=== PATIENT | male | born 1955 | race Caucasian/White ===

== ENCOUNTER 2021-05-31 12:50 | Inpatient (IN) | payer MEDICAID ==
[~2021-05-31] VITALS: Ht 177.8 cm; Wt 90.7 kg
[2021-05-31 12:52] VITALS: BP 156/100
--- NOTE | 2021-05-31 13:03 | NUR ---
PT BIBA TAKEN TO ER BED 3.
--- NOTE | 2021-05-31 13:38 | NUR ---
PT RESTING IN BED, HOB ELEVATED FOR COMFORT, VSS, WILL CONTINUE TO MONITOR.
--- NOTE | 2021-05-31 14:14 | NUR ---
PT TAKEN TO ER BED 3 VIA [facility].
--- NOTE | 2021-05-31 17:00 | NUR ---
PT SLEEPING, VISIBLE EQUAL RISE AND FALL OF CHEST, VSS, WILL CONTINUE TO MONITOR.
[2021-05-31 17:06] LABS: BASOPHILS # (AUTO) 0.1 K/uL (0.00-0.22); EOSINOPHILS # (AUTO) 0.1 K/uL (0-0.4); EOSINOPHILS % (AUTO) 0.9 % (0.0-4.0); HEMATOCRIT 35.6 % (36-52); HEMOGLOBIN 11.7 g/dL (12.0-18.0); LYMPHOCYTES # (AUTO) 1.7 K/uL (2.0-11.5); LYMPHOCYTES % (AUTO) 20.6 % (20.5-51.1); MEAN CORPUSCULAR HEMOGLOBIN 28 pg (27-31); MEAN CORPUSCULAR HGB CONC 33 g/dL (33-37); MEAN CORPUSCULAR VOLUME 86.2 fL (80-94); MONOCYTES # (AUTO) 0.5 K/uL (0.8-1.0); MONOCYTES % (AUTO) 5.5 % (1.7-9.3); NEUTROPHILS # (AUTO) 6.1 K/uL (1.8-7.7); PLATELET COUNT (AUTO) 349 K/uL (140-450); RED BLOOD CELL COUNT(AUTO) 4.13 MIL/uL (4.20-6.10); RED CELL DISTRIBUTION WIDTH 16.7 % (11.6-13.7); WHITE BLOOD COUNT (AUTO) 8.5 K/uL (4.8-10.8)
[2021-05-31] MEDS ORDERED: ASPIRIN 325 MG TAB PO ONE (18:00)
[2021-05-31 18:06] LABS: ALBUMIN 1.8 g/dL (3.4-5.0); ANION GAP 13.3 (8-16); CARBON DIOXIDE 24.4 mmol/L (21-32); CREATININE 1.1 mg/dL (0.6-1.3); POTASSIUM 4.7 mmol/L (3.5-5.1); TOTAL BILIRUBIN 0.3 mg/dL (0.0-1.0)
[2021-05-31] MEDS ORDERED: FUROSEMIDE 40 MG/4 ML VIAL IVP ONE (18:25)
[2021-05-31] MEDS ORDERED: cefTRIAXone 1,000 MG VIAL ONE (18:40)
--- NOTE | 2021-05-31 18:49 | NUR ---
DR. CARRERO AT PT BEDSIDE FOR RE-EVALUATION.
[2021-05-31 19:13] LABS: PROTHROMBIN TIME 10.9 secs (10.8-13.4)
--- NOTE | 2021-05-31 19:32 | NUR ---
GAVE REPORT TO DILIA OLIVER, AND LACY BRISCOE. TRANSFER OF CARE AT THIS TIME.
--- NOTE | 2021-05-31 21:30 | NUR ---
AFTER TALKING TO PT ABOUT SIGNING THE AMA PT DECIDED HE DOES WANT TO GET HELP. PT STATES HE WAS AT [place] LAST MONTH AND HE GOT HIS ASITES DRAINED AND THEY D/C HIM. HE SAID AT THIS POINT NO ONE IS HELPING HIM AND HE KEEPS GETTING SICK AND IS TIRED OF THIS LIFE. PT AGREED TO STAY AND ALLOWED ME TO INSERT IV.
--- NOTE | 2021-05-31 21:40 | NUR ---
called dr. whitley about pt desire to stay anf to request new admit orders. to input admit orders
[2021-05-31] MEDS ORDERED: DOCUSATE SODIUM 100 MG GELCAP PO PRN (21:50)
[2021-05-31] MEDS ORDERED: POTASSIUM CHLORIDE 10 MEQ TABER PO PRN (21:50)
[2021-05-31] MEDS ORDERED: SODIUM PHOS / POTASSIUM PHOS 1 PKT PDR PO PRN (21:50)
[2021-05-31] MEDS ORDERED: ZOLPIDEM 5 MG TAB PO PRN (21:50)
[2021-05-31] MEDS ORDERED: ONDANSETRON 4 MG/2 ML VIAL IVP PRN (21:50)
[2021-05-31] MEDS ORDERED: MAG SULF 2000 MG/WATER PREMIX 50 ML IV PRN (21:50)
[2021-05-31] MEDS ORDERED: ACETAMINOPHEN 325 MG TAB PO PRN (21:50)
[2021-05-31 22:46] LABS: PHOSPHORUS 4.3 mg/dL (2.5-4.9)
[2021-05-31] MEDS: NACL 0.9% 1,000 ML IV SCH (22:57)
--- NOTE | 2021-05-31 23:22 | NUR ---
pt states that he is hungry. he hasnt eaten in 2 days. gave pt sandwhich , crackers and soda.
--- NOTE | 2021-06-01 01:15 | NUR ---
pt become agitated. pt states he has pain on his foot. pt states that he burned his feet in the summer which resulted in blisters
[2021-06-01] MEDS: MORPHINE SULFATE 2 MG/ML SYR IVP PRN (01:45)
--- NOTE | 2021-06-01 03:54 | NUR ---
pt agitated. asking what time his procedure is. continously asing for help, time , becomeless restless and taking off gown and leads
[2021-06-01] MEDS: LORazepam 2 MG/ML VIAL IM/IVP PRN (04:02)
--- NOTE | 2021-06-01 04:05 | NUR ---
pt stated pain 10/10 morphine did not help.
[2021-06-01] MEDS: HYDROcodone/APAP 5/325 MG 1 TAB TAB PO PRN (04:07)
--- NOTE | 2021-06-01 06:54 | NUR ---
PATIENT HAS BEEN SCREENED AND CATEGORIZED MODERATE NUTRITION RISK. PATIENT WILL BE SEEN WITHIN 3-5 DAYS OF ADMISSION. 06/04/21-06/06/21 BUCK WAGNER MS, RDN
[2021-06-01 07:04] LABS: BASOPHILS # (AUTO) 0.1 K/uL (0.00-0.22); EOSINOPHILS # (AUTO) 0.1 K/uL (0-0.4); EOSINOPHILS % (AUTO) 1.3 % (0.0-4.0); HEMATOCRIT 34.4 % (36-52); HEMOGLOBIN 11.5 g/dL (12.0-18.0); LYMPHOCYTES # (AUTO) 1.9 K/uL (2.0-11.5); LYMPHOCYTES % (AUTO) 19.8 % (20.5-51.1); MEAN CORPUSCULAR HEMOGLOBIN 29 pg (27-31); MEAN CORPUSCULAR HGB CONC 33 g/dL (33-37); MEAN CORPUSCULAR VOLUME 85.9 fL (80-94); MONOCYTES # (AUTO) 0.7 K/uL (0.8-1.0); MONOCYTES % (AUTO) 7.5 % (1.7-9.3); NEUTROPHILS # (AUTO) 6.7 K/uL (1.8-7.7); NEUTROPHILS % (AUTO) 70.4 % (42.2-75.2); PLATELET COUNT (AUTO) 373 K/uL (140-450); RED CELL DISTRIBUTION WIDTH 16.6 % (11.6-13.7); WHITE BLOOD COUNT (AUTO) 9.5 K/uL (4.8-10.8)
[2021-06-01 07:19] LABS: MAGNESIUM 2.1 mg/dL (1.8-2.4); PHOSPHORUS 4.1 mg/dL (2.5-4.9)
--- NOTE | 2021-06-01 07:30 | NUR ---
REPORT RECEIVED FROM DILIA OLIVER FOR CONTINUITY OF CARE. PT IS A&OX3. SR ON MONITOR. ON ROOM AIR. IV SITE RT HAND 24G, INTACT, PATENT INFUSING NS 100 ML/HR. SAFETY PRECAUTIONS IN PLACE. CALL LIGHT WITHIN REACH. WILL CONTINUE TO MONITOR.
--- NOTE | 2021-06-01 10:10 | NUR ---
PROVIDED PT WITH BREAKFAST TRAY
[2021-06-01] MEDS: NACL 0.9% 1,000 ML IV SCH ×2 (10:11→17:55)
--- NOTE | 2021-06-01 11:00 | NUR ---
PT DESATURATING TO 80% ON ROOM AIR. PT PLACED ON 6L NASAL CANNULA. O2 SATURATION NOW AT 97%
--- NOTE | 2021-06-01 13:52 | NUR ---
PT PROVIDED WITH LUNCH TRAY
--- NOTE | 2021-06-01 15:22 | NUR ---
Patient has eyes closed, resting in bed. Vital Signs within normal limits. Respirations even and unlabored. Chest rise is symmetrical. Will continue to monitor.
[2021-06-01] MEDS: FUROSEMIDE 40 MG/4 ML VIAL IVP SCH (15:23)
[2021-06-01] MEDS ORDERED: PANT40VI PO (15:44)
[2021-06-01] MEDS ORDERED: MELA5TAB6 PO (15:44)
[2021-06-01] MEDS ORDERED: ACET-8386 PO (15:44)
[2021-06-01] MEDS ORDERED: METO25TE2 PO (15:44)
[2021-06-01] MEDS ORDERED: VITA-16 PO (15:44)
[2021-06-01] MEDS ORDERED: GABA300C PO (15:44)
[2021-06-01] MEDS ORDERED: ASPI-1749 PO (15:44)
[2021-06-01] MEDS ORDERED: HUM SUBQ (15:44)
[2021-06-01] MEDS ORDERED: ATOR40TA PO (15:44)
[2021-06-01] MEDS ORDERED: FURO-570 PO (15:44)
--- NOTE | 2021-06-01 17:40 | NUR ---
ECHO BEING PERFORMED AT BEDSIDE
--- NOTE | 2021-06-01 18:45 | NUR ---
DINNER TRAY PROVIDED
--- NOTE | 2021-06-01 19:23 | NUR ---
Pt report given to DILIA OLIVER. Transfer of care at this time.
--- NOTE | 2021-06-01 21:38 | NUR ---
REPOSITIONED PT. PT STATED HE PULLED IV POUT WHEN HE WAS EATING BECAUSE IT GOT "IN THE WAY". PT STATES PAIN 02/24. ALL VSS.
--- NOTE | 2021-06-02 01:04 | NUR ---
PT C/O LEG/ ABD PAIN. PT MAKING COMMENTS ABOUT HOSPITAL AND QUOTES "DNR ME, I DONT WANT TO LIVE ANYMORE"
[2021-06-02] MEDS: HYDROcodone/APAP 5/325 MG 1 TAB TAB PO PRN ×2 (01:06→09:39)
--- NOTE | 2021-06-02 03:00 | NUR ---
TRIED TO REINSERT IV. PT AGITATED AT THIS TIME.DID NOT WANT TO BE BOTHERED.
--- NOTE | 2021-06-02 03:07 | NUR ---
PT ASKING WHEN HE WILL GET ADMITTED. TOLD PT THERE IS NO AVAILABLE TIME.
--- NOTE | 2021-06-02 07:58 | NUR ---
Pt report given to jonah. alonzo. Transfer of care at this time.
--- NOTE | 2021-06-02 07:58 | NUR ---
REPORT RECEIVED FROM DILIA OLIVER FOR CONTINUITY OF CARE. PT IS A&OX4. ON 3L NASAL CANNULA. SKIN INTACT, WARM AND DRY. SAFETY PRECAUTIONS IN PLACE. WILL CONTINUE TO MONITOR.
[2021-06-02] MEDS ORDERED: ASPIRIN 325 MG TABEC PO SCH (09:00)
[2021-06-02] MEDS: SPIRONOLACTONE 50 MG TAB PO SCH (09:30)
[2021-06-02] MEDS: FUROSEMIDE 40 MG/4 ML VIAL IVP SCH ×3 (09:30→17:49)
[2021-06-02] MEDS: ECOTRIN 81 MG TABEC PO SCH (09:30)
--- NOTE | 2021-06-02 09:48 | NUR ---
PT EATING BREAKFAST TRAY
[2021-06-02 10:19] LABS: BASOPHILS # (AUTO) 0.1 K/uL (0.00-0.22); BASOPHILS % (AUTO) 0.9 % (0.0-2.0); EOSINOPHILS # (AUTO) 0.1 K/uL (0-0.4); EOSINOPHILS % (AUTO) 1.2 % (0.0-4.0); HEMOGLOBIN 11.6 g/dL (12.0-18.0); LYMPHOCYTES # (AUTO) 1.5 K/uL (2.0-11.5); LYMPHOCYTES % (AUTO) 19.5 % (20.5-51.1); MEAN CORPUSCULAR HEMOGLOBIN 29 pg (27-31); MEAN CORPUSCULAR HGB CONC 33 g/dL (33-37); MEAN CORPUSCULAR VOLUME 86.3 fL (80-94); MONOCYTES # (AUTO) 0.5 K/uL (0.8-1.0); MONOCYTES % (AUTO) 6.7 % (1.7-9.3); NEUTROPHILS # (AUTO) 5.6 K/uL (1.8-7.7); NEUTROPHILS % (AUTO) 71.7 % (42.2-75.2); PLATELET COUNT (AUTO) 347 K/uL (140-450); RED BLOOD CELL COUNT(AUTO) 4.06 MIL/uL (4.20-6.10); RED CELL DISTRIBUTION WIDTH 16.4 % (11.6-13.7); WHITE BLOOD COUNT (AUTO) 7.7 K/uL (4.8-10.8)
[2021-06-02 10:40] LABS: MAGNESIUM 2.4 mg/dL (1.8-2.4); PHOSPHORUS 4.3 mg/dL (2.5-4.9)
[2021-06-02] MEDS: NACL 0.9% 1,000 ML IV SCH ×2 (11:17→13:50)
[2021-06-02] MEDS: MORPHINE SULFATE 2 MG/ML SYR IVP PRN ×2 (11:22→22:02)
--- NOTE | 2021-06-02 12:03 | NUR ---
Patient has eyes closed, comfortably in bed. Vital Signs within normal limits. Respirations even and unlabored. Will continue to monitor.
--- NOTE | 2021-06-02 15:44 | NUR ---
PT EATING LUNCH TRAY
--- NOTE | 2021-06-02 19:32 | NUR ---
Pt report given to MANDIE BRISCOE. Transfer of care at this time.
--- NOTE | 2021-06-02 19:32 | NUR ---
PT REPORT RECEIVED FROM RACHNA FELIX FOR CONTINUITY OF PT CARE AT THIS TIME.
--- NOTE | 2021-06-02 19:40 | NUR ---
PT IV TO R WRIST INFILTRATED. FLUIDS PAUSED. IV DC, IV CATH INTACT.
--- NOTE | 2021-06-02 19:40 | NUR ---
PT LAYING IN R LATERAL POSITION W X2 SIDERAIL UP FOR PT SAFETY. PT ON 3L NC. PT C/O BACK PAIN 02/24. PT HOB SLIGHTLY ELEVATED. PT CONNECTED TO MONITOR W VSS. PT DENIES CHEST PAIN, REPORTS SOME SOB. BREATHING EVEN AND UNLABORED. NAD NOTED, WILL CONTINUE TO MONITOR.
--- NOTE | 2021-06-02 21:54 | NUR ---
NEW IV ESTABLISHED TO R UPPER ARM 20 G. NS FLUIDS CONTINUED.
--- NOTE | 2021-06-02 21:56 | NUR ---
PT REPOSITIONED FOR COMFORT.
--- NOTE | 2021-06-02 23:18 | NUR ---
PT APPEARS TO BE RESTING W EYES CLOSED IN R LATERAL POSITION W X2 SIDERAILS UP FOR PT SAFETY. BED LOCKED INLOWEST POSITION. HOB SLIGHTLY ELEVATED, PT CONNECTED TO MONITOR W VSS. BREATHING EVEN AN DUNLABORED. NAD NOTED, WILL CONTINUE TO MONITOR.
[2021-06-03] MEDS: NACL 0.9% 1,000 ML IV SCH ×3 (01:09→21:30)
--- NOTE | 2021-06-03 01:09 | NUR ---
PROVIDED PT W PERNIEAL CARE AND REPOSITINED FOR COMFORT.
--- NOTE | 2021-06-03 04:05 | NUR ---
PT APPEARS TO BE RESTING W EYES CLOSED IN R LATERAL POSITION W X2 SIDERAILS UP FOR PT SAFETY. BED LOCKED INLOWEST POSITION. HOB SLIGHTLY ELEVATED, PT CONNECTED TO MONITOR W VSS. BREATHING EVEN AND ULABORED. NAD NOTED, WILL CONTINUE TO MONITOR.
[2021-06-03] MEDS: MORPHINE SULFATE 2 MG/ML SYR IVP PRN ×3 (04:54→23:58)
--- NOTE | 2021-06-03 04:54 | NUR ---
PT C/O BACK PAIN 01/25, PT MEDICATED FOR PAIN.
--- NOTE | 2021-06-03 06:16 | NUR ---
PT PROVIDED W MILK PER REQUEST. ALL NEEDS MET AT THIS TIME.
--- NOTE | 2021-06-03 06:25 | NUR ---
PT BP 159/112 + C/O ALOT OF CHEST PAIN PRESSURE LIKE + SOB. MD SOARES MADE AWARE.
--- NOTE | 2021-06-03 06:37 | NUR ---
PT C/O IV SITE PAIN, REQUESTING IV BE REMOVED. IV DC W CATHETER INTACT.
--- NOTE | 2021-06-03 06:43 | NUR ---
PT O2SAT 86% RT CALLED.
--- NOTE | 2021-06-03 07:05 | NUR ---
RT AT BEDSIDE.
--- NOTE | 2021-06-03 07:23 | NUR ---
Pt report given to RACHNA Medellin. Transfer of care at this time.
--- NOTE | 2021-06-03 07:30 | NUR ---
RECEIVED PT IN [facility] ALERT ORIENTED BUT LETHARGIC AND PALE. NO IV SITE AT THIS TIME, ATTEMPTING TO PLACDE IV. NSR ON MONITOR. 9L NC PER RT SATURATION 96%. C/O BACK AND BODY PAIN. NAD. WILL CONTINUE TO MONITOR.
[2021-06-03] MEDS: ECOTRIN 81 MG TABEC PO SCH (09:00)
[2021-06-03] MEDS: FUROSEMIDE 40 MG/4 ML VIAL IVP SCH ×2 (09:00→18:31)
[2021-06-03] MEDS: SPIRONOLACTONE 50 MG TAB PO SCH (09:00)
[2021-06-03 09:27] LABS: BASOPHILS # (AUTO) 0.1 K/uL (0.00-0.22); BASOPHILS % (AUTO) 0.8 % (0.0-2.0); EOSINOPHILS # (AUTO) 0.1 K/uL (0-0.4); EOSINOPHILS % (AUTO) 1.1 % (0.0-4.0); HEMATOCRIT 35.5 % (36-52); HEMOGLOBIN 11.6 g/dL (12.0-18.0); LYMPHOCYTES # (AUTO) 1.3 K/uL (2.0-11.5); LYMPHOCYTES % (AUTO) 12.3 % (20.5-51.1); MEAN CORPUSCULAR HEMOGLOBIN 28 pg (27-31); MEAN CORPUSCULAR HGB CONC 33 g/dL (33-37); MEAN CORPUSCULAR VOLUME 85.8 fL (80-94); MONOCYTES # (AUTO) 0.4 K/uL (0.8-1.0); MONOCYTES % (AUTO) 3.6 % (1.7-9.3); NEUTROPHILS # (AUTO) 8.5 K/uL (1.8-7.7); NEUTROPHILS % (AUTO) 82.2 % (42.2-75.2); PLATELET COUNT (AUTO) 416 K/uL (140-450); RED BLOOD CELL COUNT(AUTO) 4.14 MIL/uL (4.20-6.10); RED CELL DISTRIBUTION WIDTH 16.5 % (11.6-13.7); WHITE BLOOD COUNT (AUTO) 10.4 K/uL (4.8-10.8)
--- NOTE | 2021-06-03 10:00 | NUR ---
IV INSERTED TO LEFT ABDOMEN #[id number]. PT C/O 02/24 BACK PAIN, ABDOMINAL PAIN MEDICATED WITH MORPHINE 2MG IVP PER ORDER. TOLERATED WELL. NAD.
[2021-06-03 10:19] LABS: MAGNESIUM 2.2 mg/dL (1.8-2.4); PHOSPHORUS 4.4 mg/dL (2.5-4.9)
--- NOTE | 2021-06-03 11:00 | NUR ---
BED BATH GIVEN, LINEN CHANGED. NO CHANGES NOTED.
[2021-06-03] MEDS: LORazepam 2 MG/ML VIAL IM/IVP PRN (11:37)
--- NOTE | 2021-06-03 11:45 | NUR ---
PT C/O ANXIETY AND RESTLESSNESS. MEDICATED WITH ATIVAN PER ORDER. TOLERATED WELL. NAD.
[2021-06-03 12:01] LABS: PROTHROMBIN TIME 10.4 secs (10.8-13.4)
[2021-06-03 12:19] LABS: ANION GAP 12.1 (8-16); CARBON DIOXIDE 25.5 mmol/L (21-32); CREATININE 1.1 mg/dL (0.6-1.3); POTASSIUM 4.6 mmol/L (3.5-5.1)
--- NOTE | 2021-06-03 12:38 | NUR ---
faxed clinical notes to [facility] [phone]. spoke to the department coordinator, Mireya. will monitor.
[2021-06-03] MEDS ORDERED: SPIR50TA PO (13:12)
[2021-06-03] MEDS ORDERED: FURO-570 PO (13:12)
--- NOTE | 2021-06-03 14:45 | NUR ---
RADIOLOGIST AT BEDSIDE PERFORMING PARACENTESIS.
--- NOTE | 2021-06-03 16:13 | NUR ---
DC PLANNING: CLINICAL PACKET FAXED TO [facility], PATIENT ACCEPTED BUT ROOM NOT YET ASSIGNED. PER IVONNE IN ADMISSIONS THEY DON'T YET HAVE A ROOM AND THIS WILL BE A "VERY LATE" DISCHARGE. TRANSPORT WILL NEED TO BE ARRANGED WITH [facility] ([phone]) OR [facility] [phone]). CM WILL FOLLOW. Addendum: 06/04/21 at 1113 by Emma Ledesma CM DC PLANNING: CM RECEIVED A CALL FROM JENNY ([phone]) [facility] AT [facility]. STATES THAT THE PATIENT STAY AT SNF WILL BE COVERED UNDER HIS M/JASON HIS [place] INSURANCE DOESN'T COVER OUT OF STATE SERVICES. TO CHANGE OR CANCEL HIS INSURANCE THE PATIENT WILL NEED TO CALL [phone]. CM WILL FOLLOW. Addendum: 06/05/21 at 1310 by Emma Ledemsa CM DC PLANNING: CM FAXED THE CLINICAL PACKET TO [facility], STILL WAITING FOR A ROOM ASSIGNMENT THEY ARE MOVING PATIENTS. CM SPOKE WITH IVONNE THIS MORNING, WILL UPDATE [facility] AT 1400 ON BED AVAILABILITY. CM WILL FOLLOW. Addendum: 06/05/21 at 1435 by Emma Ledesma CM DC PLANNING: PATIENT ACCEPTED TO [facility], ROOM [address] UNDER DR GRAVES. TRANSPORT ARRANGED WITH [facility] ([phone]) FOR [address] [employer]PERATOR. NUMBER TO CALL REPORT IS [phone]. PATIENTS RACHNA PEREZ GIVEN ABOVE INFORMATION. CM WILL FOLLOW.
--- NOTE | 2021-06-03 19:52 | NUR ---
Patient appears to be resting comfortably in bed-- low fowlers, eyes closed, and with 8L o2 nc with oximizer in place. Vital Signs within normal limits. Respirations even and unlabored. No signs of distress noted. Safety measures are in place, attached to the monitor and will continue to monitor patient.
--- NOTE | 2021-06-03 23:42 | NUR ---
PATIENT AGITATED AND AGRESSIVE. ATTEMPTING TO GET LEGS DOWN BUT CANNOT ALLOW SINCE PATIENT REFUSING TO PUT NC ON
--- NOTE | 2021-06-04 | NUR ---
Patient will be admitted to care of Maldonado HERNADEZ. Admited to Telemetry. Will go to room 105b. Belongings list completed. Report to Tomasz BRISCOE.
[2021-06-04 00:10] VITALS: BP 137/87
--- NOTE | 2021-06-04 00:10 | NUR ---
RECEIVED PT FROM ER NURSE FOR CONTINUITY OF CARE. PT ARRIVED VIA GURNEY. PT A&O X 4. PT ON 4LO2 VIA SC. PT VSS ARE STABLE. PT SKIN IS WARM, DRY AND INTACT. PT HAS IV ON HIS ABDOMEN,LUQ.PATENT, INTACT AND INFUSING WELL. PT HAS WOUND ON HER L FOOT. MRSA SWAB COLLECTED. PT ORIENTED TO ROOM AND CALL LIGHT.BED IN LOW LOCKED POSITION. ALL PRECAUTIONS IN PLACE. WILL CONTINUE TO MONITOR.
--- NOTE | 2021-06-04 01:00 | NUR ---
PT CLEANED AND CHANGED. PROVIDED FOOD PER PT REQUEST. ALL NEEDS MET. WILL CONTINUE TO MONITOR.
--- NOTE | 2021-06-04 03:27 | NUR ---
PT ASLEEP. VISIBLE CHEST RISE AND FALL NOTED. CALL LIGHT WITHIN REACH. WILL CONTINUE TO MONITOR.
[2021-06-04 04:00] VITALS: BP 140/88
--- NOTE | 2021-06-04 05:00 | NUR ---
PT ASLEEP. VISIBLE CHEST RISE AND FALL NOTED. CALL LIGHT WITHIN REACH. WILL CONTINUE TO MONITOR.
[2021-06-04] MEDS: NACL 0.9% 1,000 ML IV SCH ×2 (05:50→16:10)
--- NOTE | 2021-06-04 06:43 | NUR ---
PT STABLE. NO ACUTE EVENTS THROUGHOUT THE NIGHT. NO S/SX OF DISTRESS NOTED. ALL NEEDS MET. ALL PRECAUTIONS IN PLACE. WILL ENDORSE TO AM SHIFT NURSE.
--- NOTE | 2021-06-04 07:30 | NUR ---
RECEIVED BEDSIDE REPORT FROM FLOATLIGHT POWDER MIXER NURSE FOR CONTINUOUS OF CARE, PT SLEEPING AT THIS MOMENT, EASILY ARROUSABLE, PT ON 4LPM O2 VIA NC, NO SOB NOTE, IV TO L UPPER QUADRANT ABD 24G, PATENT INTACT, INFUSING NS @ 100ML/HR, INFUSING WELL. INITIAL ASSESSMENT DONE, ALL SAFETY PRECAUTION MET, CALL LIGHT WITHIN REACH, WILL CONTINUE TO MONITOR.
--- NOTE | 2021-06-04 07:36 | NUR ---
PT ENDORSED TO AM SHIFT NURSE FOR CONTINUITY OF CARE. PT IS STABLE.
[2021-06-04 07:42] LABS: BASOPHILS % (AUTO) 0.6 % (0.0-2.0); EOSINOPHILS # (AUTO) 0.1 K/uL (0-0.4); EOSINOPHILS % (AUTO) 1.5 % (0.0-4.0); HEMATOCRIT 33.7 % (36-52); HEMOGLOBIN 11.2 g/dL (12.0-18.0); LYMPHOCYTES # (AUTO) 1.4 K/uL (2.0-11.5); LYMPHOCYTES % (AUTO) 18.6 % (20.5-51.1); MEAN CORPUSCULAR HEMOGLOBIN 29 pg (27-31); MEAN CORPUSCULAR HGB CONC 33 g/dL (33-37); MEAN CORPUSCULAR VOLUME 86.4 fL (80-94); MONOCYTES # (AUTO) 0.4 K/uL (0.8-1.0); MONOCYTES % (AUTO) 4.9 % (1.7-9.3); NEUTROPHILS # (AUTO) 5.7 K/uL (1.8-7.7); NEUTROPHILS % (AUTO) 74.4 % (42.2-75.2); PLATELET COUNT (AUTO) 328 K/uL (140-450); RED CELL DISTRIBUTION WIDTH 16.3 % (11.6-13.7); WHITE BLOOD COUNT (AUTO) 7.6 K/uL (4.8-10.8)
[2021-06-04 08:00] VITALS: BP 141/89
--- NOTE | 2021-06-04 09:17 | NUR ---
RECENT LABS FAXED TO IVONNE FROM [facility] PER REQUEST.
[2021-06-04] MEDS: FUROSEMIDE 40 MG/4 ML VIAL IVP SCH (10:05)
[2021-06-04] MEDS: ECOTRIN 81 MG TABEC PO SCH (10:05)
[2021-06-04] MEDS: SPIRONOLACTONE 50 MG TAB PO SCH (10:06)
--- NOTE | 2021-06-04 11:59 | NUR ---
PER DR ELY WILKS TO DOWNGRADE TO MS, WILL CONTINUE WITH ORDERS.
--- NOTE | 2021-06-04 12:34 | NUR ---
DC Planning Order for SNF, referral sent yest to [facility]. Called & lt msg for Mireya at [facility] on cell & with Carlota at [facility], if have bed for pt today. Spoke with pt at bedside, states lives at [facility] now, has been there about 1month. Prior was at [facility] that sent to [facility] & was living at [place] with his "brother" Davy Rob(is a friend like a brother), verified ph [phone]. States at that time was independent using wc, able to self transfer. Used to live in [place] about 6months ago. Informed that needed to change insurance now to [place] since is living in [place] now. Per pt wants to go back to [facility] SNF, informed plan for today waiting to get bed assignment. Addendum: 06/04/21 at 1512 by Natasha Adams Called & spoke with Mireya at [facility], ph [phone], states that due to Covid pt's, are moving pt's around & will not have bed for pt until tomorrow.
[2021-06-04 16:00] VITALS: BP 137/90
[2021-06-04] MEDS: FUROSEMIDE 40 MG TAB PO SCH (18:39)
--- NOTE | 2021-06-04 19:23 | NUR ---
ENDORSED PT TO STABLE ATTENDANT NURSE FOR CONTINUOUS OF CARE.
[2021-06-04] MEDS: carvediloL 3.125 MG TAB PO SCH (21:56)
[2021-06-04] MEDS: LORazepam 2 MG/ML VIAL IM/IVP PRN (21:56)
--- NOTE | 2021-06-04 23:06 | NUR ---
the patient vitals are stable , breathing is even and unlabored . complained of anxiety . lorazepam 1mg was administered was given IVP. the patient sleeps comfortable in his bed . bed is low position
[2021-06-05] MEDS: NACL 0.9% 1,000 ML IV SCH (01:50)
[2021-06-05 04:57] VITALS: BP 142/86
--- NOTE | 2021-06-05 07:20 | NUR ---
RECEIVED REPORT FROM PM SHIFT RN ISSA FOR CONTINUITY OF CARE. PT. SLEEPING IN THE BED. NO S/S OF DISTRESS NOTED. BREATHINGS EVEN AND UNLABORED. ALL SAFETY MEASURES IN PLACED. WILL CONTINUE TO MONITOR THE PT.
[2021-06-05 07:25] LABS: BASOPHILS % (AUTO) 0.6 % (0.0-2.0); EOSINOPHILS # (AUTO) 0.2 K/uL (0-0.4); HEMATOCRIT 32.8 % (36-52); HEMOGLOBIN 10.7 g/dL (12.0-18.0); LYMPHOCYTES # (AUTO) 1.7 K/uL (2.0-11.5); LYMPHOCYTES % (AUTO) 25.1 % (20.5-51.1); MEAN CORPUSCULAR HEMOGLOBIN 28 pg (27-31); MEAN CORPUSCULAR HGB CONC 33 g/dL (33-37); MEAN CORPUSCULAR VOLUME 86.1 fL (80-94); MONOCYTES # (AUTO) 0.3 K/uL (0.8-1.0); MONOCYTES % (AUTO) 4.8 % (1.7-9.3); NEUTROPHILS # (AUTO) 4.5 K/uL (1.8-7.7); NEUTROPHILS % (AUTO) 66.5 % (42.2-75.2); PLATELET COUNT (AUTO) 299 K/uL (140-450); RED BLOOD CELL COUNT(AUTO) 3.81 MIL/uL (4.20-6.10); RED CELL DISTRIBUTION WIDTH 16.2 % (11.6-13.7); WHITE BLOOD COUNT (AUTO) 6.7 K/uL (4.8-10.8)
[2021-06-05 07:28] LABS: MAGNESIUM 1.9 mg/dL (1.8-2.4); PHOSPHORUS 3.3 mg/dL (2.5-4.9)
[2021-06-05 08:00] VITALS: BP 138/96
[2021-06-05] MEDS ORDERED: lisinopriL 5 MG TAB PO SCH (09:00)
[2021-06-05] MEDS: ECOTRIN 81 MG TABEC PO SCH (09:07)
[2021-06-05] MEDS: carvediloL 3.125 MG TAB PO SCH (09:08)
[2021-06-05] MEDS: SPIRONOLACTONE 50 MG TAB PO SCH (09:10)
[2021-06-05] MEDS: FUROSEMIDE 40 MG TAB PO SCH (09:10)
--- NOTE | 2021-06-05 10:00 | NUR ---
ADMINISTERED MEDICATION DUE. PT. TOLERATED WELL . PT. STABLE. NOT IN DISTRESS. ALL SAFETY MEASURES IN PLACE. WILL CONTINUE TO MONITOR THE PT.
--- NOTE | 2021-06-05 13:32 | NUR ---
PT. LYING IN THE BED COMFORTABLY. WITHOUT S/S OF DISTRESS NOTED. BREATHINGS EVEN AND UNLABORED. ALL SAFETY MEASURES IN PLACED. WILL CONTINUE TO MONITOR THE PT.
--- NOTE | 2021-06-05 15:00 | NUR ---
RECEIVED DISCHARGE ORDER TO TRANSFER PT. TO [facility]. SNF. WILL FOLLOW UP.
[2021-06-05 16:57] VITALS: BP 128/88
[2021-06-05 17:16] VITALS: BP 128/88
--- NOTE | 2021-06-05 18:20 | NUR ---
PT. DISCHARGED TO [facility] ORDER. REPORT WAS GIVEN TO RACHNA FELIX. PT. STABLE, ALERT,ORIENTED UPON DISCHARGE. NO ANY DISTRESS NOTED. PICKED UP PT. BY [facility] ARRANGED. PICKED UP BY [facility].
[2021-06-05] MEDS ORDERED: carvediloL 6.25 MG TAB PO SCH (21:00)
== END 2021-06-05 18:20 | DRG 203 ==
LOC: MED 12:50 → MTU 22:00
PROVIDERS: ADMIT Family Medicine; ATTEND Family Medicine
PROC: 0W9G3ZZ Drainage of Peritoneal Cavity, Percutaneous Approach (ICD-10-PCS; principal; 2021-06-04)
DX: M94.0 Chondrocostal junction syndrome [Tietze] (principal); I50.43 Acute on chronic combined systolic (congestive) and diastolic (congestive) heart failure; E43 Unspecified severe protein-calorie malnutrition; R18.8 Other ascites; I42.9 Cardiomyopathy, unspecified; K74.60 Unspecified cirrhosis of liver; I11.0 Hypertensive heart disease with heart failure; Z20.822 Contact with and (suspected) exposure to COVID-19; E78.5 Hyperlipidemia, unspecified; Z86.73 Personal history of transient ischemic attack (TIA), and cerebral infarction without residual deficits; Z79.4 Long term (current) use of insulin; Z79.82 Long term (current) use of aspirin; Z79.899 Other long term (current) drug therapy; Z68.28 Body mass index [BMI] 28.0-28.9, adult
CPT/HCPCS: 36415; 49083; 71045; 72170; 73502; 76705; 80048; 80053; 82150; 83690; 83735; 83880; 84100; 84484; 85025; 85610; 85730; 87081; 93005; 99285; J0696; J1940; J2001; J2060; J2270; Q0092